=== PATIENT | female | born 1960 | race Caucasian/White ===

== ENCOUNTER 2016-11-25 11:40 | Emergency (ER) | payer OTHER ==
[~2016-11-25] VITALS: Wt 100.0 kg
[2016-11-25] MEDS ORDERED: SOD CHLORIDE 0.9% 1,000 ML IV STA (14:52)
[2016-11-25 15:21] LABS: ADD SCAN DIFF NO
[2016-11-25 15:24] LABS: BASOPHILS % 0.4 % (0.0-2.0); EOSINOPHILS # 0.2 10^3/ul (0.0-0.5); EOSINOPHILS % 1.3 % (0.0-7.0); HEMATOCRIT 45.6 % (37.0-47.0); HEMOGLOBIN 15.3 g/dl (12.0-16.0); LYMPHOCYTES # 2.9 10^3/ul (0.8-2.9); LYMPHOCYTES % 26.2 % (15.0-51.0); MEAN CORPUSCULAR HEMOGLOBIN 30.2 pg (29.0-33.0); MEAN CORPUSCULAR HGB CONC 33.6 g/dl (32.0-37.0); MEAN CORPUSCULAR VOLUME 90.1 fl (82.0-101.0); MEAN PLATELET VOLUME 9.7 fl (7.4-10.4); MONOCYTE # 0.7 10^3/ul (0.3-0.9); MONOCYTES % 6.3 % (0.0-11.0); NEUTROPHIL # 7.3 10^3/ul (1.6-7.5); NEUTROPHILS % 65.4 % (39.0-77.0); PLATELET COUNT 271 10^3/UL (140-415); RED BLOOD COUNT 5.06 10^6/ul (4.20-5.40); RED CELL DISTRIBUTION WIDTH 12.8 % (11.5-14.5); WHITE BLOOD COUNT 11.2 10^3/ul (4.8-10.8)
[2016-11-25 15:26] LABS: ADD UMIC YES; URINE BILIRUBIN (Dip) NEGATIVE (NEGATIVE); URINE BLOOD (Dip) 1+ (NEGATIVE); URINE COLOR LT. YELLOW (YELLOW); URINE GLUCOSE (Dip) NEGATIVE (NEGATIVE); URINE KETONES (Dip) NEGATIVE (NEGATIVE); URINE LEUKOCYTE ESTERASE (Dip) NEGATIVE (NEGATIVE); URINE NITRITE (Dip) NEGATIVE (NEGATIVE); URINE TOTAL PROTEIN (Dip) NEGATIVE (NEGATIVE); URINE UROBILINOGEN (Dip) 0.2 E.U./dL (0.1-1.0)
--- NOTE | 2016-11-25 15:31 | RADRPT ---
PROCEDURE: CT Brain without contrast. CLINICAL INDICATION: Dizziness TECHNIQUE: A multiplanar CT of the brain was performed on a CT scanner utilizing axial imaging fro m the skull base through the vertex without IV contrast. The CTDIvol is 43.77 mGy and the DLP is 63 0.2 mGycm. One or more of the following dose reduction techniques were utilized: Automated exposur e control, adjustment of the mA and/or kV according to patient size, use of iterative reconstruction technique. COMPARISON: None FINDINGS: No evidence of intracranial hemorrhage or abnormal extra-axial fluid collection. The brain parenchyma is normal attenuation morphology with preservation of owens white differentiatio n and age appropriate size of the ventricles and subarachnoid spaces. The posterior fossa contents, brainstem, craniocervical junction, orbits, pituitary axis, paranasal sinuses, mastoid air cells, and calvarium are unremarkable. IMPRESSION: 1. No intracranial hemorrhage or acute intracranial abnormality. RPTAT:AAJJ Physician Kali Date Time Electronically viewed and signed by Physician Kali on 11/25/2016 15:31 MIGUEL A/
[2016-11-25 15:32] LABS: INR 0.91; PROTIME 12.2 Sec (12.2-14.2)
[2016-11-25 15:33] LABS: PARTIAL THROMBOPLASTIN TIME 26.1 Sec (25.0-35.0)
[2016-11-25 15:35] LABS: SQUAMOUS EPITHELIAL CELL,UR FEW
[2016-11-25 15:38] LABS: CHLORIDE 107 mmol/L (97-110); POTASSIUM 3.8 mmol/L (3.5-5.1); SODIUM 144 mmol/L (135-144)
[2016-11-25 15:41] LABS: ANION GAP 16 (8-16); BLOOD UREA NITROGEN 14 mg/dl (7-20); CARBON DIOXIDE 25 mmol/L (21-31); CREATININE 0.77 mg/dl (0.44-1.00); GLUCOSE 109 mg/dl (70-220)
--- NOTE | 2016-11-25 15:43 | RADRPT ---
PROCEDURE: XR Chest. CLINICAL INDICATION: Dizziness. TECHNIQUE: Single frontal view of the chest was obtained COMPARISON: No. FINDINGS: The soft tissues are normal. The bony elements are normal. The heart, left side aorta, cardiomedias tinal silhouette, pulmonary vasculature and hilar structures are normal. The lungs are clear. The co stophrenic angles are normal. There is an accessory azygos lobe in the medial aspect of the right up per lung field. IMPRESSION: 1. Normal chest x-ray. RPTAT:AAJJ Physician Estela Date Time Electronically viewed and signed by Physician Estela on 11/25/2016 15:42 /
[2016-11-25 16:00] LABS: TROPONIN-I < 0.012 ng/ml (0.00-0.12)
[2016-11-25 16:14] LABS: BARBITURATES Negative (NEGATIVE); BENZODIAZEPINES Negative (NEGATIVE); CANNABINOIDS Negative (NEGATIVE); COCAINE Negative (NEGATIVE); OPIATES Negative (NEGATIVE)
[2016-11-25] MEDS ORDERED: MECL-77 PO (16:21)
[2016-11-25 16:52] VITALS: BP 155/78; PULSE 79; RESP 16
--- NOTE | 2016-11-25 17:13 | ERD ---
ER Documentation Chief Complaint Date/Time DATE: 11/25/16 TIME: 17:12 Chief Complaint DIZZINESS X 1 WEEK HPI Patient is a 56-year-old female with no medical problems who presents with dizziness and headache. She feels tired diffusely. She said that she had numbness around her mouth and numbness of her body diffusely. She has no fevers. The symptoms started 1 week ago. She has had no treatment as of yet. She does not know the name of her primary doctor. Upon review of old medical records this is the patient's first visit to the emergency department. ROS All systems reviewed and are negative except as per history of present illness. Medications Home Meds Active Scripts Meclizine Hcl* (Meclizine Hcl*) 25 Mg Tablet, 25 MG PO Q8H Y for DIZZINESS, #20 TAB Prov:CHICA VILLA MD 11/25/16 Allergies Allergies: Coded Allergies: No Known Allergy (Unverified , 11/25/16) PMhx/Soc Medical and Surgical Hx: pt denies Surgical Hx History of Surgery: No Anesthesia Reaction: No Hx Neurological Disorder: No Hx Respiratory Disorders: No Hx Cardiac Disorders: No Hx Psychiatric Problems: No Hx Miscellaneous Medical Probl: Yes (Colitis) Hx Alcohol Use: No Hx Substance Use: No Hx Tobacco Use: No Smoking Status: Never smoker FmHx Family History: No diabetes Physical Exam Vitals Vital Signs Date Time Temp Pulse Resp B/P Pulse Ox O2 Delivery O2 Flow Rate FiO2 11/25/16 16:52 79 16 155/78 100 11/25/16 14:30 98.6 79 18 179/80 99 Physical Exam Const: No acute distress Head: Atraumatic Eyes: Normal Conjunctiva ENT: Normal External Ears, Nose and Mouth. Neck: Full range of motion..~ No meningismus. Resp: Clear to auscultation bilaterally Cardio: Regular rate and rhythm, no murmurs Abd: Soft, non tender, non distended. Normal bowel sounds Skin: No petechiae or rashes Back: No midline or flank tenderness Ext: No cyanosis, or edema Neur: Awake and alert, no slurred speech, cranial nerves II through XII are intact, gait is normal Psych: Normal Mood and Affect Result Diagram: 11/25/16 1505 11/25/16 1505 Results 24 hrs Laboratory Tests Test 11/25/16 15:05 11/25/16 15:47 Activated Partial Thromboplast Time 26.1Sec Anion Gap 16 Basophils # 0.010^3/ul Basophils % 0.4% Blood Urea Nitrogen 14mg/dl Calcium Level 9.0mg/dl Carbon Dioxide Level 25mmol/L Chloride Level 107mmol/L Creatinine 0.77mg/dl Eosinophils # 0.210^3/ul Eosinophils % 1.3% Glucose Level 109mg/dl Hematocrit 45.6% Hemoglobin 15.3g/dl Hemoglobin A1c 5.7% INR International Normalized Ratio 0.91 Lymphocytes # 2.910^3/ul Lymphocytes % 26.2% Mean Corpuscular Hemoglobin 30.2pg Mean Corpuscular Hemoglobin Concent 33.6g/dl Mean Corpuscular Volume 90.1fl Mean Platelet Volume 9.7fl Monocytes # 0.710^3/ul Monocytes % 6.3% Neutrophils # 7.310^3/ul Neutrophils % 65.4% Nucleated Red Blood Cells # 0.010^3/ul Nucleated Red Blood Cells % 0.0/100WBC Platelet Count 24459^3/UL Potassium Level 3.8mmol/L Prothrombin Time 12.2Sec Prothrombin Time Ratio 1.0 Red Blood Count 5.0610^6/ul Red Cell Distribution Width 12.8% Sodium Level 144mmol/L Troponin I < 0.012ng/ml Urine Amphetamines Screen Negative Urine Barbiturates Negative Urine Benzodiazepines Screen Negative Urine Bilirubin NEGATIVE Urine Cannabinoids Negative Urine Clarity CLEAR Urine Cocaine Screen Negative Urine Color LT. YELLOW Urine Glucose NEGATIVE% Urine Hemoglobin 1+ Urine Ketones NEGATIVE Urine Leukocyte Esterase NEGATIVE Urine Microscopic RBC 2-5/HPF Urine Microscopic WBC 0-2/HPF Urine Nitrite NEGATIVE Urine Opiates Screen Negative Urine Specific [place] 1.020 Urine Squamous Epithelial Cells FEW Urine Total Protein NEGATIVE Urine Urobilinogen 0.2 E.U./dL Urine pH 6.0 White Blood Count 11.210^3/ul Bedside Glucose 106mg/dL Current Medications Medications (Trade) Dose Ordered Sig/Lorne Route PRN Reason Start Time Stop Time Status Last Admin Dose Admin Sodium Chloride (NS) 1,000 ml @ 1,000 mls/hr Q1H STAT IV 11/25/16 14:52 11/25/16 15:51 DC 11/25/16 15:56 Procedures/MDM CT head shows no acute interbody per radiology. Chest x-ray negative per radiology. EKG read by me: Rate/Rhythm: Regular rate and rhythm at a normal rate Intervals: Normal Impression: No evidence of ischemia or arrhythmia Patient is a 56-year-old female with no medical problems who presents with dizziness and headache. She has no focal neurologic deficit and at this point I doubt stroke, intrarenal hemorrhage, or intracranial mass. I believe outpatient management is appropriate. The patient's laboratory studies are basically normal. EKG shows no signs of acute ischemia. I doubt acute coronary syndrome. The patient will need to follow-up closely with her primary doctor within 24-48 hours. She can return sooner for any worsening symptoms. Departure Diagnosis: Primary Impression: Headache Headache type: unspecified Headache chronicity pattern: acute headache Intractability: not intractable Qualified Code: R51 - Acute nonintractable headache, unspecified headache type Additional Impression: Dizziness Condition: Fair Patient Instructions: Self-Care for Headaches, Dizziness, Unk Cause Additional Instructions: Llame al doctor MAANA y emerson caitlyn BOBBI PARA DENTRO DE 1-2 ROTHMAN.Dgale a la secretaria que nosotros le instruimos hacer esta bobbi.Avise o llame si neely condicin se empeora antes de la bobbi. Regresa aqui si peor o no mejor. CHICA VILLA MD Nov 25, 2016 17:13
== END 2016-11-25 16:53 | disposition home or self-care (01) ==
LOC: E/R 11:40
DX: R51 Headache (principal); R40.2142 Coma scale, eyes open, spontaneous, at arrival to emergency department; R40.2252 Coma scale, best verbal response, oriented, at arrival to emergency department; R40.2362 Coma scale, best motor response, obeys commands, at arrival to emergency department; R07.89 Other chest pain
CPT/HCPCS: 36415; 70450; 71010; 80048; 80307; 81001; 81003; 82962; 83036; 84484; 85025; 85610; 85730; J7030; Z7502

== ENCOUNTER 2018-04-05 17:32 | Emergency (ER) | END 2018-04-05 20:00 | disposition home or self-care (01) ==

== ENCOUNTER 2018-08-29 21:37 | Emergency (ER) | END 2018-08-30 04:06 | disposition home or self-care (01) ==